=== PATIENT | female | born 1945 | race Caucasian/White ===

== ENCOUNTER → 2023-05-12 11:03 | Outpatient (REF) | payer MEDICARE, SELFPAY | LOC: RAD 11:03 | PROVIDERS: ATTENDING PHYSICIAN Internal Medicine; FAMILY PHYSICIAN Family Medicine | DX: Z13.820 Encounter for screening for osteoporosis (principal); Z78.0 Asymptomatic menopausal state; M85.89 Other specified disorders of bone density and structure, multiple sites | CPT/HCPCS: 77080 ==

== ENCOUNTER → 2023-10-12 10:08 | Outpatient (REF) | payer MEDICARE, SELFPAY ==
[2023-10-12 12:01] LABS: HDL Cholesterol 81 mg/dl; LDL Cholesterol, Calculated 126 mg/dl; Total Cholesterol 222 mg/dl (50-199); Triglyceride 75 mg/dl (10-149); Very Low Density Lipoprotein 15 mg/dl (0-30)
== END ==
LOC: REG 10:08
PROVIDERS: ATTENDING PHYSICIAN Family Medicine
DX: E78.00 Pure hypercholesterolemia, unspecified (principal)
CPT/HCPCS: 36415; 80061

== ENCOUNTER → 2023-11-20 11:51 | Outpatient (REF) | payer MEDICARE, SELFPAY ==
[2023-11-20 13:15] LABS: Erythrocyte Sed Rate 13 mm/hour (0-20)
[2023-11-20 13:17] LABS: % Basophils 0.9 % (0-2); % Eosinophils 2.4 % (0-6); % Immature Granulocytes 0.5 % (0-0.5); % Lymphocytes 26.2 % (20.5-51.1); % Monocytes 11.6 % (1.7-9.3); % Neutrophils 58.4 % (42.2-75.2); Absolute Eosinophils 0.1 10^3/uL (0-0.7); Absolute Lymphocytes 1.1 10^3/uL (1.2-3.4); Absolute Monocytes 0.5 10^3/uL (0.1-0.6); Absolute Neutrophils 2.5 10^3/uL (1.4-6.5); Hematocrit 37.1 % (37.0-47.0); Hemoglobin 12.4 g/dL (12.0-16.0); Mean Corp Hgb Conc. 33.4 g/dL (33.0-37.0); Mean Corpuscular Hgb 30.4 pg (27.0-31.0); Mean Corpuscular Volume 90.9 fL (81.0-99.0); Mean Platelet Volume 10.4 fL (7.4-10.4); Nucleated Red Blood Cells % 0 %; Platelet Count 256 10^3/uL (130-400); Red Blood Cell Count 4.08 10^6/uL (4.20-5.40); Red Cell Dist. Width 13.2 % (11.5-14.5); White Blood Cell Count 4.2 10^3/uL (4.8-10.8)
[2023-11-20 13:30] LABS: ALT (SGPT) 14 U/L (0-35); AST (SGOT) 30 U/L (14-36); Albumin 4.3 g/dl (3.5-5.0); Alkaline Phosphatase 65 U/L (38-126); Blood Urea Nitrogen 18 mg/dl (7-17); Calcium 9.5 mg/dl (8.4-10.2); Carbon Dioxide 28 mmol/L (22-30); Chloride 100 mmol/L (98-107); Glucose 89 mg/dl (70-99); Potassium 5.2 mmol/L (3.5-5.1); Sodium 139 mmol/L (135-145); Total Bilirubin 0.5 mg/dl (0.2-1.3); Total Protein 6.6 g/dl (6.3-8.2); eGFR > 60.00
[2023-11-20 13:31] LABS: C-Reactive Protein < 5.00 mg/L (0.0-10.00)
== END ==
LOC: REG 11:51
PROVIDERS: ATTENDING PHYSICIAN Internal Medicine; FAMILY PHYSICIAN Family Medicine
DX: A69.20 Lyme disease, unspecified (principal)
CPT/HCPCS: 36415; 80053; 85025; 85652; 86140; 86618

== ENCOUNTER → 2024-03-29 11:06 | Outpatient (REF) | payer MEDICARE, OTHER, SELFPAY ==
[2024-03-29 12:26] LABS: ALT (SGPT) 15 U/L (0-35); AST (SGOT) 30 U/L (14-36); Albumin 4.5 g/dl (3.5-5.0); Alkaline Phosphatase 82 U/L (38-126); Blood Urea Nitrogen 17 mg/dl (7-17); Calcium 9.6 mg/dl (8.4-10.2); Carbon Dioxide 31 mmol/L (22-30); Chloride 97 mmol/L (98-107); Glucose 90 mg/dl (70-99); HDL Cholesterol 86 mg/dl; LDL Cholesterol, Calculated 119 mg/dl; Potassium 5.1 mmol/L (3.5-5.1); Sodium 136 mmol/L (135-145); Total Bilirubin 0.4 mg/dl (0.2-1.3); Total Cholesterol 223 mg/dl (50-199); Total Protein 7.2 g/dl (6.3-8.2); Triglyceride 91 mg/dl (10-149); Very Low Density Lipoprotein 18 mg/dl (0-30); eGFR > 60.00
[2024-03-29 12:49] LABS: TSH Reflex To Free T4 2.46 uIU/ml (0.47-4.68)
== END ==
LOC: REG 11:06
PROVIDERS: ATTENDING PHYSICIAN Family Medicine
DX: E78.00 Pure hypercholesterolemia, unspecified (principal); R00.2 Palpitations
CPT/HCPCS: 36415; 80053; 80061; 84443

== ENCOUNTER → 2024-09-27 15:38 | Outpatient (REF) | payer MEDICARE, OTHER, SELFPAY | LOC: WDC 15:38 | PROVIDERS: ATTENDING PHYSICIAN Family Medicine | DX: Z12.31 Encounter for screening mammogram for malignant neoplasm of breast (principal) | CPT/HCPCS: 77063; 77067 ==

== ENCOUNTER 2024-12-09 19:04 | Emergency (ER) | payer MEDICARE, OTHER, SELFPAY ==
[2024-12-09 19:08] VITALS: BP 169/80
--- NOTE | 2024-12-09 20:17 | ED.GENMED ---
History of Present Illness
<Tiffanie Joseph MD - Last Filed: 12/09/24 21:32>
General
Chief Complaint: Fall
Source: patient and family
Time Seen by Provider: 12/09/24 20:06
History of Present Illness
History of Present Illness:
79-year-old female, was walking her dog, and dog chased after a rabbit causing her to get pulled down to the ground, landing backwards. She thinks she landed on the grass. She got up and walked home, and was sitting on a chair outside when
neighbors came over and noticed that she was forgetful. Patient does not remember walking home and was unable to recall the president at the time that her neighbors are speaking with her. She now is fully oriented. She denies visual changes,
numbness, focal weakness, dizziness, chest pain, shortness of breath, abdominal pain, nausea, vomiting. She has mild discomfort on the right side of her neck and a mild to moderate global headache. She denies photophobia.
Past History
<Tiffanie Joseph MD - Last Filed: 12/09/24 21:32>
Past History
ED Past Medical History: None
ED Past Surgical History: Gynecological
Social History
Tobacco: Non-smoker
Alcohol: None
Drug: None
Personal:
Living: alone
Phy Exam
<Tiffanie Joseph MD - Last Filed: 12/09/24 21:32>
Physical Exam
Physical Exam:
GENERAL: Alert , in no apparent distress
EYE: pupils equal and reactive, EOMI, no photophobia
NECK: Supple, no significant adenopathy, no midline tenderness, no swelling noted.
ENT: o/p clr, mmm, no rowe, no raccoon, no hemotympanums, no signs of head or facial injury noted on exam.
CARDIAC: Regular rate and rhythm .
LUNGS: Clear breath sounds bilaterally, no acute respiratory distress, no wheezes/rales/rhonchi
ABDOMEN: Soft, without focal tenderness, no r/g, no cvat
NEUROLOGICAL: Alert and oriented, no focal neuro deficits
SKIN: Warm and dry, skin intact.
MUSCULOSKELETAL: No edema, well perfused.
PSYCH: Normal and appropriate interaction.
Course
<Tiffanie Joseph MD - Last Filed: 12/09/24 21:32>
Orders/Labs/Results
Orders:
Orders
12/09/24 19:10
CT Cervical Spine W/o Iv Contr Urgent
Comment:
Reason For Exam: fall head injury
CT Head W/o Iv Contrast Urgent
Comment:
Reason For Exam: fall head injury
Vital Signs
Initial and Last Documented VS:
Initial Vital Signs
Temp Pulse Resp BP Pulse Ox
98.0 F 63 20 169/80 99
12/09/24 19:08 12/09/24 19:08 12/09/24 19:08 12/09/24 19:08 12/09/24 19:08
Last Documented Vital Signs
Temp Pulse Resp BP Pulse Ox
98.0 F 63 20 169/80 99
12/09/24 19:08 12/09/24 19:08 12/09/24 19:08 12/09/24 19:08 12/09/24 20:19
<Steven Watson MD - Last Filed: 12/10/24 02:36>
Orders/Labs/Results
Orders:
Orders
12/09/24 19:10
CT Cervical Spine W/o Iv Contr Urgent
Comment:
Reason For Exam: fall head injury
CT Head W/o Iv Contrast Urgent
Comment:
Reason For Exam: fall head injury
Vital Signs
Initial and Last Documented VS:
Initial Vital Signs
Temp Pulse Resp BP Pulse Ox
98.0 F 63 20 169/80 99
12/09/24 19:08 12/09/24 19:08 12/09/24 19:08 12/09/24 19:08 12/09/24 19:08
Last Documented Vital Signs
Temp Pulse Resp BP Pulse Ox
98.0 F 63 20 169/80 99
12/09/24 19:08 12/09/24 19:08 12/09/24 19:08 12/09/24 19:08 12/09/24 20:19
<Steven Watson MD - Last Filed: 12/10/24 02:36>
MDM/Problems Addressed
MDM/Problems Addressed:
CT report reviewed and discussed with patient/family. Pt otherwise is afebrile, hemodynamically stable and neurologically intact, at time of discharge. Advised PCP f/u as outpatient
<Tiffanie Joseph MD - Last Filed: 12/09/24 21:32>
*Pulse Oximetry
SaO2: 99
Oxygen Mode of Delivery: Room air
<Steven Watson MD - Last Filed: 12/10/24 02:36>
*Pulse Oximetry
Patient hypoxic: no
*Critical Care Note
Total Time (30-74mins, 75-104mins- exclusive of procedures): Not Applicable
<Tiffanie Joseph MD - Last Filed: 12/09/24 21:32>
Update Note
Update Note:
Patient presents to the Emergency Department with ____fall
Number and Complexity of Problems Addressed at the Encounter
� Chronic conditions affecting care:
� Acute Exacerbation and/or Progression of Chronic Illness:
� Differential Diagnosis includes: But not limited to subdural hematoma, epidural hematoma, concussion, cervical fracture, neck strain, etc. etc.
Amount and/or Complexity of Data to be Reviewed and Analyzed
� I performed an independent evaluation of and my interpretation is:
EKG:
CT:
Xrays:
Laboratory Studies:
Other:
� Review of other/old records reveals:
� Clinical information was obtained by an independent historian: Daughter and son-in-law who are at bedside
� Prescriptions/Medications Considered but not given:
� Further testing considered but not performed:
Risk of Complications and/or Morbidity or Mortality of Patient Management
� Social determinants of health affecting care:
� Discussion with other providers (PCP, Hospitalists, Consultants, etc):
� Escalation of care including admission/observation vs risk of discharge considered: Patient will be placed in a Lane collar awaiting studies.
ED Attending Note
<Tiffanie Joseph MD - Last Filed: 12/09/24 21:32>
-
Portions of this chart may have been created with voice recognition software.� Occasional wrong word or��sound alike� substitutions may have occurred due to the inherent limitations of voice recognition software.
Discharge Plan
Departure
Patient Disposition: Home (Routine Discharge)
Date of Disposition: 12/09/24
Time of Disposition: 22:22
Patient with high blood pressure during this ER visit?: Yes
Condition: Good
Discharge Problem:
Concussion
Instructions: Concussion, Adult (DC), Head Injury in Adults (DC), BLOOD PRESSURE
Referrals:
Aundrea Arrieta MD [Family Provider, Family Practice] - Follow up in 2-3 days
Activity Restrictions/Additional Instructions:
IF YOU DEVELOP SEVERE HEADACHE, NAUSEA, VOMITING, THE LIGHT HURTS YOUR EYES, FORGETFULNESS, CHEST PAIN, SHORTNESS OF BREATH, DIZZINESS, NUMBNESS, WEAKNESS, IMBALANCE, OR OTHER WORRISOME SIGNS, PLEASE RETURN TO THE ER IMMEDIATELY!
Interventions
Interventions:
*Risk Screen - Suicide Last Done: 12/09/24 20:30
*General Assessment Last Done: 12/09/24 19:08
*ED- Fall Risk Assessment Last Done: 12/09/24 20:30
*ED COVID-19 Vaccine History Last Done: 12/09/24 20:30
*ED Influenza Vaccine History Last Done: 12/09/24 20:30
*Nursing Disposition Last Done: 12/09/24 22:35
ED-Musculoskeletal Assessment Last Done: 12/09/24 20:21
ED- Neurological Assessment Last Done: 12/09/24 20:21
ED-Skin Assessment Last Done: 12/09/24 20:21
Discharge Date and Time
Discharge Date/Time: 12/09/24 22:36
Print Language: MONGOLIAN
== END 2024-12-09 22:36 | disposition home or self-care (01) ==
LOC: EMR 19:04
PROVIDERS: EMERGENCY PHYSICIAN Emergency Medicine; FAMILY PHYSICIAN Family Medicine
DX: S06.0XAA Concussion with loss of consciousness status unknown, initial encounter (principal); R03.0 Elevated blood-pressure reading, without diagnosis of hypertension; W01.0XXA Fall on same level from slipping, tripping and stumbling without subsequent striking against object, initial encounter; Y93.K1 Activity, walking an animal
CPT/HCPCS: 99284; 70450; 72125

== ENCOUNTER → 2025-03-03 13:28 | Outpatient (REF) | payer MEDICARE, OTHER, SELFPAY ==
[2025-03-03 15:32] LABS: HDL Cholesterol 71 mg/dl; LDL Cholesterol, Calculated 85 mg/dl; Very Low Density Lipoprotein 13 mg/dl (0-30)
== END ==
LOC: RAD 13:28
PROVIDERS: ATTENDING PHYSICIAN Family Medicine
DX: R79.89 Other specified abnormal findings of blood chemistry (principal); R53.83 Other fatigue; E78.00 Pure hypercholesterolemia, unspecified; M25.50 Pain in unspecified joint; M25.60 Stiffness of unspecified joint, not elsewhere classified
CPT/HCPCS: 36415; 73130; 80061; 84443